=== PATIENT | female | born 1995 | race Caucasian/White ===

== ENCOUNTER 2017-04-05 14:57 | Emergency (ER) | payer OTHER ==
[2017-04-05 15:21] VITALS: BP 105/74; PULSE 89; RESP 16; TEMP 98.9; O2SAT 98; BMI 21.4
--- NOTE | 2017-04-05 15:22 | ED PDOC ---
Arrival/HPI - General Historian: Patient - General Time Seen by Provider: 04/05/17 15:15 - History of Present Illness Narrative History of Present Illness (Text): 04/05/17 15:19 21 y/o female, no pmh, nkda, c/o throat/ear pain with nasal congestion and frontal headache started this morning with no recent traveling for the past 4 weeks. Aching pain, no chest pain or shortness of breath, no palpitation, no rash, no dizziness, no other medical or psychological complaints. (Anup Longoria) Past Medical History - Provider Review Nursing Documentation Reviewed: Yes Family/Social History - Physician Review Nursing Documentation Reviewed: Yes Family/Social History: Unknown Family HX Allergies/Home Meds Allergies/Adverse Reactions: Allergies No Known Allergies Allergy (Verified 04/05/17 15:20) Review of Systems - Review of Systems Constitutional: absent: Fatigue, Fevers Eyes: absent: Vision Changes ENT: Sore Throat, Rhinorrhea, Sinus Congestion, Other (ear pain) Respiratory: absent: SOB, Cough, Sputum Cardiovascular: absent: Chest Pain Gastrointestinal: absent: Abdominal Pain, Nausea, Vomiting Musculoskeletal: absent: Arthralgias, Myalgias Skin: absent: Rash, Pruritis, Skin Lesions, Laceration, Abscess, Ulcer, Cellulitis Neurological: absent: Headache, Dizziness, Focal Weakness, Gait Changes Psychiatric: absent: Anxiety, Depression, Suicidal Ideation Physical Exam Vital Signs Reviewed: Yes Temperature: Afebrile Pulse: Regular Respiratory Rate: Normal Appearance: Positive for: Well-Appearing, Non-Toxic, Comfortable Pain Distress: Mild Mental Status: Positive for: Alert and Oriented X 3 - Systems Exam Head: Present: Atraumatic, Normocephalic Pupils: Present: PERRL Extroacular Muscles: Present: EOMI Conjunctiva: Present: Normal Ears: Present: NORMAL TM, Normal Canal. No: Erythema Mouth: Present: Moist Mucous Membranes, Normal Lips, Normal Tounge, Normal Teeth , Other (+ttp on the lt. maxillary sinus region. ). No: Drooling, Trismus Pharnyx: No: ERYTHEMA, EXUDATE, TONSILS ENLARGED, Muffled/Hoarse Voice Nose (External): No: Abrasion, Contusion, Laceration Nose (Internal): Present: No Active Bleeding, Moist. No: Rhinorrhea, Purulent Mucous, Septal Hematoma, Epistaxis Neck: Present: Normal Range of Motion, Trachea Midline. No: Lymphadenopathy Respiratory/Chest: Present: Clear to Auscultation, Good Air Exchange. No: Respiratory Distress, Accessory Muscle Use Cardiovascular: Present: Regular Rate and Rhythm, Normal S1, S2. No: Murmurs Abdomen: Present: Normal Bowel Sounds. No: Tenderness, Distention, Peritoneal Signs Back: Present: Normal Inspection Upper Extremity: Present: Normal Inspection. No: Cyanosis, Edema Lower Extremity: Present: Normal Inspection. No: Edema Neurological: Present: GCS=15, Speech Normal, Motor Func Grossly Intact, Gait Normal, Memory Normal Skin: Present: Warm, Dry, Normal Color. No: Rashes Lymphatic: No: Cervical Adenopathy Psychiatric: Present: Alert, Oriented x 3, Normal Insight, Normal Concentration Medical Decision Making ED Course and Treatment: 04/05/17 15:22 -Discharge home with augmentin, claritin d24, motrin, flonase, stay hydrated, bed rest, follow up with your own pmd and ENT within 2 days, return to the ER for any new or worsening signs or symptoms. (Anup Longoria) I was available for consultation during PA evaluation. The chart was reviewed by me, and I agree with disposition. The documented history was done by the physician sports marketer. The documented physical exam was done by the physician sports marketer. The documented procedures were done by the physician sports marketer. ( Marcus Pope) - PA / REMOTE CONTROL MIRROR INSTALLER / Resident Statement MD/DO has reviewed & agrees with the documentation as recorded. Disposition/Present on Arrival - Present on Arrival Any Indicators Present on Arrival: No History of DVT/PE: No History of Uncontrolled Diabetes: No Urinary Catheter: No History of Decub. Ulcer: No - Disposition Have Diagnosis and Disposition been Completed?: Yes Disposition Time: 15:23 Patient Plan: Discharge - Disposition Diagnosis: Sinusitis Disposition: HOME/ ROUTINE Condition: GOOD Additional Instructions: Discharge home with augmentin, claritin d24, motrin, flonase, stay hydrated, bed rest, follow up with your own pmd and ENT within 2 days, return to the ER for any new or worsening signs or symptoms. Prescriptions: Amoxicillin/Clavulanate [Augmentin 875 MG-125 MG] 1 tab PO BID #14 tab Fluticasone Nasal [Flonase] 2 spr NS DAILY #1 spr Ibuprofen [Motrin Tab] 600 mg PO QID PRN #24 tab PRN Reason: Other Loratadine/Pseudoephedrine [Claritin-D 24 Hour Tablet] 1 each PO DAILY #7 tab.er.24h Referrals: Mario Nicole DO [Staff Provider] - Follow up with primary [facility] [place] - Follow up with primary Forms: WORK NOTE
== END 2017-04-05 16:16 | disposition home or self-care (01) ==
LOC: ED 14:57
DX: J32.9 Chronic sinusitis, unspecified (principal)

== ENCOUNTER 2017-04-23 23:53 | Emergency (ER) | payer OTHER ==
[2017-04-24 00:07] VITALS: BMI 22.1
[2017-04-24 00:10] VITALS: TEMP 99.3
--- NOTE | 2017-04-24 01:24 | ED PDOC ---
Arrival/HPI <Andres Anders - Last Filed: 04/24/17 01:33> - General Historian: Patient - History of Present Illness Symptom Onset: Gradual Symptom Course: Unchanged Activities at Onset: Rest, Light Context: Home <Jennifer Vasquez PA-C - Last Filed: 04/24/17 02:50> - General Chief Complaint: Female Genitourinary Time Seen by Provider: 04/24/17 00:32 - History of Present Illness Narrative History of Present Illness (Text): 04/24/17 01:15 21 year old female who presents to the Emergency department complaining of heavy vaginal bleeding. Patient states she recently had a termination of /D&C in mid February at 3 months gestation. Patient states she follow-up after 2 weeks as advised and was told everythinf was fine. Patient states she started her menses 11 days ago and states heavy vaginal bleeding is still present. Patient states she used 7 pads today. Patient denies any fever, chills , chest pain, shortness of breath, nausea, vomiting, diarrhea, urinary symptoms , back pain, neck pain, headache, dizziness, or any other complaints. PMD Ramdas HIDE PASTER: Max (Jennifer Vasquez PA-C) Past Medical History - Provider Review Nursing Documentation Reviewed: Yes - Psychiatric Hx Substance Use: No <Jennifer Vasquez PA-C - Last Filed: 04/24/17 02:50> Family/Social History - Physician Review Nursing Documentation Reviewed: Yes Family/Social History: No Known Family HX Smoking Status: Never Smoked Hx Alcohol Use: Yes Hx Substance Use: No <Jennifer Vasquez PA-C - Last Filed: 04/24/17 02:50> Allergies/Home Meds <Andres Anders - Last Filed: 04/24/17 01:33> <Jennifer Vasquez PA-C - Last Filed: 04/24/17 02:50> Allergies/Adverse Reactions: Allergies No Known Allergies Allergy (Verified 04/05/17 15:20) Home Medications: Home Meds Medication Instructions Recorded Confirmed No Known Home Med 04/24/17 04/24/17 Review of Systems - Physician Review All systems were reviewed & negative as marked: Yes - Review of Systems Constitutional: Normal. absent: Fevers Eyes: Normal ENT: Normal Respiratory: Normal. absent: SOB, Cough Cardiovascular: Normal. absent: Chest Pain Gastrointestinal: Normal. absent: Abdominal Pain, Diarrhea, Nausea, Vomiting Genitourinary Female: Vaginal Bleeding. absent: Dysuria, Frequency, Hematuria, Urine Output Changes Musculoskeletal: Normal. absent: Back Pain, Neck Pain Skin: Normal. absent: Rash Neurological: Normal. absent: Headache, Dizziness Endocrine: Normal Hemo/Lymphatic: Normal Psychiatric: Normal <Jennifer Vasquez PA-C - Last Filed: 04/24/17 02:50> Physical Exam Vital Signs Reviewed: Yes Temperature: Afebrile Blood Pressure: Normal Pulse: Regular Respiratory Rate: Normal Appearance: Positive for: Well-Appearing, Non-Toxic, Comfortable Pain Distress: None Mental Status: Positive for: Alert and Oriented X 3 - Systems Exam Head: Present: Atraumatic, Normocephalic Pupils: Present: PERRL Extroacular Muscles: Present: EOMI Conjunctiva: Present: Normal Mouth: Present: Moist Mucous Membranes Neck: Present: Normal Range of Motion Respiratory/Chest: Present: Clear to Auscultation, Good Air Exchange. No: Respiratory Distress, Accessory Muscle Use Cardiovascular: Present: Regular Rate and Rhythm, Normal S1, S2. No: Murmurs Abdomen: Present: Normal Bowel Sounds. No: Tenderness, Distention, Peritoneal Signs Genitourinary/Pelvic Exam: Present: Vaginal Bleeding (Mild vaginal bleeding), Cervical os Closed, Other (DUARTE Wilson present as fairground operator). No: Adenexal Tenderness, Cervical Motion Tendernes Back: Present: Normal Inspection Upper Extremity: Present: Normal Inspection. No: Cyanosis, Edema Lower Extremity: Present: Normal Inspection. No: Edema Neurological: Present: GCS=15, CN II-XII Intact, Speech Normal Skin: Present: Warm, Dry, Normal Color. No: Rashes Psychiatric: Present: Alert, Oriented x 3, Normal Insight, Normal Concentration <Jennifer Vasquez PA-C - Last Filed: 04/24/17 02:50> Vital Signs Temp Pulse Resp BP Pulse Ox 04/24/17 00:09 99.3 F 66 16 122/76 99 Medical Decision Making <Andres Anders - Last Filed: 04/24/17 01:33> <Jennifer Vasquez PA-C - Last Filed: 04/24/17 02:50> ED Course and Treatment: 04/24/17 01:15 Impression: 21 year old female complaining of heavy vaginal bleeding for 11 days. Plan: -- Transvaginal US -- Labs, blood type and screen -- UA -- Reassess and disposition Progress Notes: On re-evaluation, patient is resting comfortably in bed in no acute distress. Uhcg (-). Labs are reviewed and are wnl. US results (-) as per US tech, awaiting official US read by overnight radiologist. Given toradol IV. (Jennifer Vasquez PA-C) - Lab Interpretations Lab Results: 04/24/17 01:25 Lab Results 04/24/17 02:22: Blood Type Pending, Antibody Screen Pending, BBK History Checked No verified bt 04/24/17 01:25: Urine HCG, Qual Negative 04/24/17 01:25: WBC 5.8, RBC 3.88, Hgb 11.6 L, Hct 35.2 L, MCV 90.7, MCH 29.9, MCHC 33.0, RDW 13.4, Plt Count 295, MPV 10.9, Gran % 51.6, Lymph % (Auto) 39.0 H , [place] % (Auto) 7.0 H, Eos % (Auto) 1.7, Baso % (Auto) 0.7, Gran # 3.00, Lymph # 2.3, [place] # 0.4, Eos # 0.1, Baso # 0.04 - RAD Interpretation Radiology Orders: 04/24/17 01:16 TRANSVAGINAL [US] Stat - PA / PRESETTER OPERATOR / Resident Statement CHASE has reviewed & agrees with the documentation as recorded. <Andres Anders - Last Filed: 04/24/17 01:33> - PA / PRESETTER OPERATOR / Resident Statement / has reviewed & agrees with the documentation as recorded. - Scribe Statement The provider has reviewed the documentation as recorded by the Scribe <Jennifer Vasquez PA-C - Last Filed: 04/24/17 02:50> - Scribe Statement Sara Cosme All medical record entries made by the Scribe were at my direction and personally dictated by me. I have reviewed the chart and agree that the record accurately reflects my personal performance of the history, physical exam, medical decision making, and the department course for this patient. I have also personally directed, reviewed, and agree with the discharge instructions and disposition. (Jennifer Vasquez PA-C) Disposition/Present on Arrival <ChagoAndres - Last Filed: 04/24/17 01:33> - Present on Arrival Any Indicators Present on Arrival: No History of DVT/PE: No History of Uncontrolled Diabetes: No Urinary Catheter: No History of Decub. Ulcer: No History Surgical Site Infection Following: None - Disposition Have Diagnosis and Disposition been Completed?: Yes Disposition Time: 02:00 Patient Plan: Discharge <Jennifer Vasquez PA-C - Last Filed: 04/24/17 02:50> - Disposition Diagnosis: DUB (dysfunctional uterine bleeding) Disposition: HOME/ ROUTINE Patient Problems: Current Active Problems Problem Status Onset DUB (dysfunctional uterine bleeding) Acute Condition: STABLE Discharge Instructions (ExitCare): Dysfunctional Uterine Bleeding (ED) Print Language: CHINESE Additional Instructions: Thank you for letting us take care of you today. You were treated for dysfunctional uterine bleeding, status post termination of . The emergency medical care you received today was directed at your acute symptoms. Return to the Emergency Department if your symptoms worsen, do not improve, or if you have any other problems. Please contact your rooms director in 1-2 days for re-evaluation and follow up. Bring any paperwork you were given at discharge with you along with any medications you are taking to your follow up visit. Our treatment cannot replace ongoing medical care by a primary care provider (PCP) outside of the emergency department. Thank you for allowing the [facility] team to be part of your care today.
[2017-04-24 01:36] LABS: ADD MANUAL DIFF? NO
[2017-04-24 02:07] LABS: BASO # 0.04 K/mm3 (0.0-2.0); BASO % 0.7 % (0.0-3.0); EOS # 0.1 (0.0-0.7); EOS % 1.7 % (1.5-5.0); GRAN % 51.6 % (50.0-68.0); HEMATOCRIT 35.2 % (36.0-48.0); LYMPH # 2.3 (1.2-3.4); MEAN CELL VOLUME 90.7 fL (80.0-105.0); MEAN CORPUSCULAR HEMOGLOBIN 29.9 pg (25.0-35.0); MEAN PLATELET VOLUME 10.9 fl (7.0-11.0); MONO # 0.4 (0.1-0.6); PLATELET COUNT 295 10^3/uL (120.0-450.0); RED CELL DISTRIBUTION WIDTH 13.4 % (11.5-14.5); WHITE BLOOD COUNT 5.8 10^3/ul (4.5-11.0)
[2017-04-24 02:46] LABS: ALB/GLOB RATIO 1.2 (1.1-1.8); ALKALINE PHOSPHATASE 50 U/L (38-133); ALT/SGPT 25 U/L (7-56); AST/SGOT 22 U/L (15-39); BILIRUBIN,TOTAL 0.4 mg/dL (0.2-1.3); BLOOD UREA NITROGEN 8 mg/dL (7-21); CALCIUM 8.9 mg/dL (8.4-10.5); CARBON DIOXIDE 28 mmol/L (21-33); CHLORIDE 103 mmol/L (98-107); GFR AFRICAN-AMERICAN > 60; GLUCOSE,RANDOM 85 mg/dL (70-110); POTASSIUM 3.8 mmol/L (3.6-5.0); SODIUM 138 mmol/L (132-148); TOTAL PROTEIN 6.7 g/dL (5.8-8.3)
[2017-04-24 02:53] LABS: INR 0.95 (0.93-1.08)
[2017-04-24 03:12] VITALS: BP 118/72; PULSE 60; RESP 18; O2SAT 100
--- NOTE | 2017-04-24 08:17 | US ---
HISTORY: vag bleeding, s/p TOP, r/o retained POC COMPARISON: None available. TECHNIQUE: Transvaginal pelvic ultrasound was performed. FINDINGS: UTERUS: Measures 8.4 x 4.3 x 6.9 cm. Anteverted, normal in size and appearance. No fibroid or other mass lesion seen. ENDOMETRIUM: Measures 13 mm in diameter. Central endometrial echo complex is heterogeneous and there is minimal fluid within the endometrial cavity. There is no evidence of increased vascularity. CERVIX: No cervical abnormality identified. RIGHT OVARY: Measures 2.6 x 2.0 x 3.1 cm. No solid mass. Normal flow. LEFT OVARY: Measures 2.8 x 2.1 x 2.7 cm. No solid mass. Normal flow. FREE FLUID: No significant free fluid noted. OTHER FINDINGS: None. IMPRESSION: Heterogeneous central endometrial echo complex with minimal fluid in the endometrial cavity. No evidence of increased vascularity to suggest retained products of conception.
== END 2017-04-24 03:12 | disposition home or self-care (01) ==
LOC: ED 23:53
DX: N93.8 Other specified abnormal uterine and vaginal bleeding (principal)
CPT/HCPCS: 76830; 80053; 84703; 85025; 85610; 85730; 86850; 86900; 96374; 99284; J1885

== ENCOUNTER 2017-10-22 23:40 | Emergency (ER) | payer OTHER ==
[2017-10-22 23:50] VITALS: PULSE 81; RESP 17; O2SAT 100; BMI 21.4
[2017-10-22 23:51] VITALS: BP 120/79
--- NOTE | 2017-10-22 23:53 | ED PDOC ---
Arrival/HPI - General Historian: Patient - History of Present Illness Time/Duration: Other (2 days) Symptom Onset: Gradual Symptom Course: Worsening Quality: Aching, Burning Severity Level: 6 <Jessica Potter - Last Filed: 10/23/17 00:14> - Critical Care Critical Care Minutes: 30 minutes Critical Care Time: Excluding Proc Time <Andres Glover - Last Filed: 10/23/17 05:15> - General Chief Complaint: ENT Problem Time Seen by Provider: 10/22/17 23:48 - History of Present Illness Narrative History of Present Illness (Text): 10/22/17 23:50 22-year-old female presents today with a 2 day history of sore throat. Patient denies fevers at home. Denies nasal congestion. Denies ear pain. Denies cough. Denies dizziness or weakness. Denies any sick contacts. No medications have been taken for pain at home. Patient is complaining of a burning sensation with swallowing. No other complaints (Jessica Potter) Past Medical History - Provider Review Nursing Documentation Reviewed: Yes - Travel History Have you recently traveled outside [place] w/in the past 3 mons?: No - Psychiatric Hx Substance Use: No <Jessica Potter - Last Filed: 10/23/17 00:14> Family/Social History - Physician Review Nursing Documentation Reviewed: Yes Family/Social History: Unknown Family HX Smoking Status: Never Smoked Hx Alcohol Use: Yes Hx Substance Use: No <Jessica Potter - Last Filed: 10/23/17 00:14> Allergies/Home Meds <Jessica Potter - Last Filed: 10/23/17 00:14> <Andres Glover - Last Filed: 10/23/17 05:15> Allergies/Adverse Reactions: Allergies No Known Allergies Allergy (Verified 04/05/17 15:20) Review of Systems - Review of Systems Constitutional: absent: Fatigue, Fevers ENT: Sore Throat. absent: Sinus Congestion Respiratory: absent: SOB, Cough Cardiovascular: absent: Chest Pain, Palpitations Gastrointestinal: absent: Abdominal Pain, Nausea, Vomiting Musculoskeletal: absent: Arthralgias Skin: absent: Rash, Pruritis Neurological: absent: Headache, Dizziness Psychiatric: absent: Anxiety, Depression <Jessica Potter - Last Filed: 10/23/17 00:14> Physical Exam Vital Signs Reviewed: Yes Temperature: Afebrile Blood Pressure: Normal Pulse: Regular Respiratory Rate: Normal Appearance: Positive for: Well-Appearing, Non-Toxic, Comfortable Pain Distress: None Mental Status: Positive for: Alert and Oriented X 3 - Systems Exam Head: Present: Atraumatic Conjunctiva: Present: Normal Ears: Present: Normal, NORMAL TM Mouth: Present: Moist Mucous Membranes Pharnyx: Present: ERYTHEMA. No: EXUDATE, TONSILS ENLARGED, Peritonsilar Swelling, Uvular Deviation, Muffled/Hoarse Voice Nose (External): Present: Atraumatic Neck: Present: Normal Range of Motion, Trachea Midline. No: Lymphadenopathy Respiratory/Chest: Present: Clear to Auscultation, Good Air Exchange. No: Respiratory Distress, Accessory Muscle Use Cardiovascular: Present: Regular Rate and Rhythm, Normal S1, S2. No: Murmurs Upper Extremity: Present: Normal ROM Lower Extremity: Present: Normal ROM Neurological: Present: GCS=15 Skin: Present: Warm, Dry, Normal Color. No: Rashes Psychiatric: Present: Alert, Oriented x 3 <Jessica Potter - Last Filed: 10/23/17 00:14> Vital Signs Temp Pulse Resp BP Pulse Ox 10/22/17 23:56 98.1 F 10/22/17 23:50 81 17 120/79 100 10/22/17 23:47 81 17 100 Medical Decision Making <Jessica Potter - Last Filed: 10/23/17 00:14> <Andres Glover - Last Filed: 10/23/17 05:15> ED Course and Treatment: 10/22/17 23:54 Patient is nontoxic well appearing in no distress. Vital signs are stable Tolerating p.o. fluids and solids Motrin 600 mg p.o. amoxicillin I advised follow up with primary care physician within the next 2 days, advised to increase fluids take medications as prescribed and return if symptoms worsen persist or if new symptoms develop Patient verbalizes understanding of discharge instructions and need for immediate followup. all aspects of this case were discussed the attending of record. IMPRESSION; pharyngitis Motrin every 6 hours as needed for pain/fever reduction Increase fluids Amoxicillin; 3 times daily x10 days Follow up primary care physician within the next 2 days Saltwater gargles, throat lozenges Return if symptoms worsen persist or if the symptoms develop (Jessica Potter) - Medication Orders Current Medication Orders: Discontinued Medications Amoxicillin (Amoxil 500 Mg Cap) 500 mg PO STAT STA PRN Reason: Protocol Stop: 10/22/17 23:52 Last Admin: 10/23/17 00:05 Dose: 500 mg Ibuprofen (Motrin Tab) 600 mg PO STAT STA Stop: 10/22/17 23:52 Last Admin: 10/23/17 00:05 Dose: 600 mg Disposition/Present on Arrival - Present on Arrival Any Indicators Present on Arrival: No History of DVT/PE: No History of Uncontrolled Diabetes: No Urinary Catheter: No History Surgical Site Infection Following: None - Disposition Have Diagnosis and Disposition been Completed?: Yes Disposition Time: 23:49 Patient Plan: Discharge <Jessica Potter - Last Filed: 10/23/17 00:14> <Andres Glover - Last Filed: 10/23/17 05:15> - Disposition Diagnosis: Pharyngitis Disposition: HOME/ ROUTINE Condition: GOOD Discharge Instructions (ExitCare): Pharyngitis (ED) Additional Instructions: Motrin every 6 hours as needed for pain/fever reduction Increase fluids Amoxicillin; 3 times daily x10 days Follow up primary care physician within the next 2 days Saltwater gargles, throat lozenges Return if symptoms worsen persist or if the symptoms develop Prescriptions: Amoxicillin 500 mg PO TID #30 tab Ibuprofen [Motrin] 600 mg PO Q6H PRN #20 tab PRN Reason: pain/fever reduction Referrals: Blaise Mcfadden DO [Staff Provider] - Follow up with primary Ramana Grimaldo MD [Staff Provider] - Follow up with primary Forms: WORK NOTE, SCHOOL NOTE, [facility] (Maltese)
[2017-10-22 23:56] VITALS: TEMP 98.1
== END 2017-10-23 00:06 | disposition home or self-care (01) ==
LOC: ED 23:40
DX: J02.9 Acute pharyngitis, unspecified (principal)